=== PATIENT | male | born 1975 | race Caucasian/White ===

== ENCOUNTER 2019-01-23 23:13 | Emergency (ER) | payer OTHER ==
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
[2019-01-23 23:22] VITALS: BP 135/87
== END 2019-01-23 23:43 ==
DX: M25.519 Pain in unspecified shoulder (principal); G89.29 Other chronic pain; V47.5XXA Car driver injured in collision with fixed or stationary object in traffic accident, initial encounter; Y92.410 Unspecified street and highway as the place of occurrence of the external cause